=== PATIENT | female | born 1960 | race African-American/Black ===

== ENCOUNTER 2017-03-15 17:32 | Emergency (ER) | payer SELFPAY ==
[~2017-03-15] VITALS: Ht 160 cm; Wt 110.0 kg
[~2017-03-15 17:32] MED LIST: CYCL-36 PO; IBUP-232 PO
[2017-03-15 17:35] VITALS: BP 163/96; PULSE 84; RESP 16; TEMP 98.5; O2SAT 98
--- NOTE | 2017-03-15 17:53 | PD ---
Physical Exam Time Seen by Provider: 17:52 Narrative 56yo F c/o LUQ abd pain and diarrhea x2 days, +N w/o V. +subjective fever. Patient seen in triage. VS reviewed. Awaiting bed placement. Data Data Last Documented VS Vital Signs Date Time Temp Pulse Resp B/P Pulse Ox O2 Delivery O2 Flow Rate FiO2 03/15/17 17:35 98.5 84 16 163/96 98 MDM Supervised Visit with SHOSHANA: Shirin Calzada Mar 15, 2017 17:53
[2017-03-15 18:22] LABS: BASOPHIL % 0.7 % (0.0-2.0); EOSINOPHIL # 0.2 TH/MM3 (0-0.4); EOSINOPHIL % 3.4 % (0.0-4.0); HEMATOCRIT 40.3 % (35.0-46.0); HEMO FLAGS DIFF FINAL; LYMPH % 36.9 % (9.0-44.0); LYMPHOCYTE # 1.7 TH/MM3 (1.0-4.8); MEAN CELL VOLUME 86.7 FL (80.0-100.0); MEAN CORPUSCULAR HEMOGLOBIN 28.7 PG (27.0-34.0); MEAN CORPUSCULAR HGB CONC 33.1 % (32.0-36.0); PLATELET COUNT 255 TH/MM3 (150-450); RED BLOOD COUNT 4.65 MIL/MM3 (4.00-5.30); RED CELL DISTRIBUTION WIDTH 14.9 % (11.6-17.2); WHITE BLOOD COUNT 4.5 TH/MM3 (4.0-11.0)
[2017-03-15 18:34] LABS: APTT (PATIENT) 26.2 SEC (24.3-30.1); PROTHROMBIN TIME - PATIENT 11.6 SEC (9.8-11.6)
[2017-03-15 18:39] LABS: ANION GAP 7 MEQ/L (5-15); AST (GOT) 17 U/L (15-37); BICARBONATE 25.5 MEQ/L (21.0-32.0); BLOOD UREA NITROGEN 13 MG/DL (7-18); CHLORIDE 109 MEQ/L (98-107); GLOMERULAR FILTRATION RATE 96 ML/MIN (>89); POTASSIUM 3.5 MEQ/L (3.5-5.1); SODIUM (NA) 141 MEQ/L (136-145)
[2017-03-15] MEDS ORDERED: PRED10 PO (18:41)
[2017-03-15 18:45] LABS: BACTERIA, URINE OCC /hpf; BLOOD, URINE MOD (NEG); COMMENT (UR) CULT NOT INDICATED; CULTURE IF INDICATED CULT NOT INDICATED; GLUCOSE,URINE NEG (NEG); HYALINE CAST, URINE 4 /lpf (RARE); KETONE, URINE NEG (NEG); MUCUS URINE FEW /lpf (OCC); NITRITE,URINE NEG (NEG); PH, URINE 5.5 (5.0-8.5); SQUAMOUS EPITHELIAL CELL URINE 6 /hpf (0-5); URINE COLOR YELLOW (YELLW/STRAW)
[2017-03-15 18:49] LABS: ALKALINE PHOSPHATASE 69 U/L (45-117); ALT (GPT) 17 U/L (10-53); TOTAL BILIRUBIN ADULT 0.3 MG/DL (0.2-1.0)
[2017-03-15] MEDS ORDERED: BACT800T5 PO (19:17)
--- NOTE | 2017-03-15 19:18 | PD ---
HPI Chief Complaint: Abdominal Pain Time Seen by Provider: 18:45 Travel History International Travel<30 days: No Contact w/Intl Traveler<30days: No Traveled to known affect area: No History of Present Illness HPI ALEK is a 56 y.o female presenting with abdominal pain, headache , and non-bloody diarrhea after eating fried chicken at her friend's house 3 days ago. She describes her pain as a moderate, non-radiating, constant 8/10 crampy sensation that is mostly in her LUQ. It is non-worsening. She has tried Gatorade and fluids to help with these symptoms but throws up shortly after consumption. She denies anything that makes her sickness worse. AA reports having associated fever, nausea, non-bloody/non-emesis. She also reports having a 5 minute episode of chest pain yesterday associated with numbness in her hands that resolved on it's own. She has not had this pain since. Denies dyspnea , chills, back pain, leg pain, changes in urination and edema. She says these symptoms are similar to an episode of food poisoning she experienced when she was 18. Her LMP was when she was 38. She also notes her Psoriasis has flared since her symptoms began. She has no other medical conditions. She smokes 5 cigarettes a day, but denies alcohol or drug use. Surgical history remarkable for ovarian cyst removal. Family history notable for cervical cancer in 2 sisters. This patient does not have insurance and does not follow up regularly with a PCP. COUNTS INCLUDE 234 BEDS AT THE [facility] Past Medical History Narrative Medical Psoriasis Asthma: No Autoimmune Disease: No Blood Disorders: No Heart Rhythm Problems: No Cancer: No Cardiovascular Problems: Yes High Cholesterol: No Chemotherapy: No Chest Pain: No Congestive Heart Failure: No COPD: No Cerebrovascular Accident: No Diminished Hearing: No Endocrine: No Glaucoma: No Genitourinary: No Headaches: No Hypertension: Yes Immune Disorder: No Musculoskeletal: No Neurologic: No (NARCOLEPSY) Psychiatric: No Reproductive: No Respiratory: Yes Integumentary: Yes (PSORIASIS ) Immunizations Current: No Migraines: No Myocardial Infarction: No Radiation Therapy: No Seizures: No Sleep Apnea: Yes Tetanus Vaccination: > 5 Years Influenza Vaccination: No PNEUMOCCOCAL Vaccine (Year): 2 ?: Not Menopausal: Yes : 2 Para: 1 : 1 Ovarian Cysts: Yes (LEFT) Past Surgical History Abdominal Surgery: Yes (CYST REMOVED FROM OVARY) Cardiac Surgery: No Ear Surgery: No Endocrine Surgery: No Eye Surgery: No Genitourinary Surgery: No Gynecologic Surgery: Yes (LEFT OVARIAN CYCST SURG) Oral Surgery: No Thoracic Surgery: No Other Surgery: Yes (BILATERAL BREAST REDUCTION) Family History Narrative Family History Cervical cancer in 2 sisters Social History Alcohol Use: Yes (OCCASIONAL) Tobacco Use: Yes (SOMETIMES ) Substance Use: Yes (MARIJUANA OCCASIONAL) Allergies-Medications (Allergen,Severity, Reaction): Coded Allergies: Amoxicillin (Verified Allergy, Severe, Rash, 03/15/17) Bacitracin (Verified Allergy, Severe, Rash, 03/15/17) Keflex (Verified Allergy, Severe, Hives, 03/15/17) Neomycin (Verified Allergy, Severe, Hives, 03/15/17) Zinc (Verified Allergy, Severe, Rash, 03/15/17) Reported Meds & Prescriptions Reported Meds & Active Scripts Active Bactrim DS (Sulfamethoxazole-Trimethoprim) 800-160 Mg Tab 1 Tab PO BID Reported Prednisone 10 Mg Tab 10 Mg PO DAILY Review of Systems Except as stated in HPI: all other systems reviewed are Neg Physical Exam Narrative GENERAL: Alert and oriented, responds to questions intelligently. Appears to be in pain, holds her abdomen. SKIN: Warm and dry. Multiple diffuse non-erythematous, non-purulent scaly lesions with excoriation distributed in a linear fashion both truncally and axially. Also present on her scalp. HEAD: Atraumatic. Normocephalic. EYES: Pupils equal and round. No scleral icterus. No injection or drainage. ENT: No nasal bleeding or discharge. Mucous membranes pink and moist. NECK: Trachea midline. No JVD. CARDIOVASCULAR: Regular rate and rhythm. RESPIRATORY: No accessory muscle use. Clear to auscultation. Breath sounds equal bilaterally. GASTROINTESTINAL: BS + in all 4 quadrants. Abdomen soft, diffusely tender, mostly in LUQ. Nondistended. Hepatic and splenic margins not palpable. No masses appreciated. MUSCULOSKELETAL: Extremities without clubbing, cyanosis, or edema. No obvious deformities. NEUROLOGICAL: Awake and alert. No obvious cranial nerve deficits. Motor grossly within normal limits. Five out of 5 muscle strength in the arms and legs. Normal speech. PSYCHIATRIC: Appropriate mood and affect; insight and judgment normal. Data Data Last Documented VS Vital Signs Date Time Temp Pulse Resp B/P Pulse Ox O2 Delivery O2 Flow Rate FiO2 03/15/17 17:35 98.5 84 16 163/96 98 VS reviewed Orders Complete Blood Count With Diff (03/15/17 17:54) Comprehensive Metabolic Panel (03/15/17 17:54) Lipase (03/15/17 17:54) Prothrombin Time / Inr (Pt) (03/15/17 17:54) Act Partial Throm Time (Ptt) (03/15/17 17:54) Urinalysis - C+S If Indicated (03/15/17 17:54) Dexamethasone Inj (Decadron Inj) (03/15/17 19:30) Labs Laboratory Tests Test 03/15/17 18:08 White Blood Count 4.5 TH/MM3 Red Blood Count 4.65 MIL/MM3 Hemoglobin 13.3 GM/DL Hematocrit 40.3 % Mean Corpuscular Volume 86.7 FL Mean Corpuscular Hemoglobin 28.7 PG Mean Corpuscular Hemoglobin 33.1 % Concent Red Cell Distribution Width 14.9 % Platelet Count 255 TH/MM3 Mean Platelet Volume 7.9 FL Neutrophils (%) (Auto) 44.0 % Lymphocytes (%) (Auto) 36.9 % Monocytes (%) (Auto) 15.0 % Eosinophils (%) (Auto) 3.4 % Basophils (%) (Auto) 0.7 % Neutrophils # (Auto) 2.0 TH/MM3 Lymphocytes # (Auto) 1.7 TH/MM3 Monocytes # (Auto) 0.7 TH/MM3 Eosinophils # (Auto) 0.2 TH/MM3 Basophils # (Auto) 0.0 TH/MM3 CBC Comment DIFF FINAL Differential Comment Prothrombin Time 11.6 SEC Prothromb Time International 1.0 RATIO Ratio Activated Partial 26.2 SEC Thromboplast Time Urine Color YELLOW Urine Turbidity HAZY Urine pH 5.5 Urine Specific [place] 1.028 Urine Protein 30 mg/dL Urine Glucose (UA) NEG mg/dL Urine Ketones NEG mg/dL Urine Occult Blood MOD Urine Nitrite NEG Urine Bilirubin NEG Urine Urobilinogen 2.0 MG/DL Urine Leukocyte Esterase TRACE Urine RBC 18 /hpf Urine WBC 3 /hpf Urine Squamous Epithelial 6 /hpf Cells Urine Bacteria OCC /hpf Urine Hyaline Casts 4 /lpf Urine Mucus FEW /lpf Microscopic Urinalysis Comment CULT NOT INDICATED Sodium Level 141 MEQ/L Potassium Level 3.5 MEQ/L Chloride Level 109 MEQ/L Carbon Dioxide Level 25.5 MEQ/L Anion Gap 7 MEQ/L Blood Urea Nitrogen 13 MG/DL Creatinine 0.75 MG/DL Estimat Glomerular Filtration 96 ML/MIN Rate Random Glucose 92 MG/DL Calcium Level 8.1 MG/DL Total Bilirubin 0.3 MG/DL Aspartate Amino Transf 17 U/L (AST/SGOT) Alanine Aminotransferase 17 U/L (ALT/SGPT) Alkaline Phosphatase 69 U/L Total Protein 6.8 GM/DL Albumin 3.6 GM/DL Lipase 134 U/L [facility] Medical Decision Making Medical Screen Exam Complete: Yes Emergency Medical Condition: Yes Medical Record Reviewed: Yes Differential Diagnosis Colitis, Gastroenteritis, IBS, IBD, Pancreatitis, Cholecystitis Narrative Course Patient agrees to undergo blood tests to further investigate the cause of her symptoms. CBC & BMP Diagram 03/15/17 18:08 LFTs normal Lipase 134 UA: Hematuria Diet lifestyle modification endorsed. Return precautions discussed. We also discussed psoriasis symptoms extensively with patient. Diagnosis Primary Impression: Colitis Additional Impression: Psoriasis Referrals: Primary Care Physician 3 days Additional Instructions: You have a choice when it comes to health care, and we are glad that you chose [facility]. Hopefully, we have met your expectations on today's visit. You are welcome to return to [facility] at any time, as we are committed to meeting the health care needs of our community. Med/Other Pt SpecificInfo: Prescription(s) given Scripts Sulfamethoxazole-Trimethoprim (Bactrim DS)800-160 Mg Tab1 Tab PO BID #6 TAB Ref 0 Prov:Ervin Cook MD 03/15/17 Disposition: 01 DISCHARGE HOME Condition: Stable Ervin Cook MD Mar 15, 2017 19:18
[2017-03-15] MEDS ORDERED: DEXAMETHASONE SOD PHOS 4 MG/ML VIAL IM ONE (19:30)
== END 2017-03-15 20:23 | disposition home or self-care (01) ==
LOC: NEPD 17:32
DX: K52.9 Noninfective gastroenteritis and colitis, unspecified (principal); L40.9 Psoriasis, unspecified; R51 Headache; R50.9 Fever, unspecified; I10 Essential (primary) hypertension; G47.30 Sleep apnea, unspecified; Z72.0 Tobacco use; Z86.79 Personal history of other diseases of the circulatory system
CPT/HCPCS: 80053; 81001; 83690; 85025; 85610; 85730; 96372; 99284; J1100

== ENCOUNTER 2018-03-22 21:26 | Inpatient (IN) ==
[2018-03-26] MEDS ORDERED: hydrALAZINE 10 MG Tablet PO PRN (00:01)
[2018-03-26] MEDS ORDERED: Acetaminophen 500 MG Tablet PO PRN (00:01)
[2018-03-26] MEDS ORDERED: Naloxone Inj 0.4 MG/ML Vial IV.PUSH PRN (00:01)
[2018-03-26] MEDS ORDERED: Bisacodyl 10 MG Supp RECTAL PRN (00:01)
[2018-03-26] MEDS ORDERED: oxyCODONE/Acetaminophen 10/325 Tablet ONE (00:47)
[2018-03-26] MEDS: oxyCODONE/Acetaminophen 10/325 Tablet PO PRN ×5 (01:53→22:34)
[2018-03-26] MEDS: hydrALAZINE 25 MG Tablet PO SCH ×2 (05:48→13:00)
[2018-03-26] MEDS: Lisinopril 20 MG Tablet PO SCH ×2 (09:23→20:26)
[2018-03-26] MEDS: Enoxaparin Inj 40 MG/0.4 ML Syringe SQ SCH (09:23)
[2018-03-26] MEDS: Morphine Inj 4 MG/ML Vial IV.PUSH PRN ×2 (09:24→20:26)
[2018-03-26] MEDS: Senna/Docusate Sodium 8.6/50 MG Tablet PO SCH ×2 (09:24→20:26)
[2018-03-26] MEDS: amLODIPine 10 MG Tablet PO SCH (09:24)
[2018-03-26] MEDS: predniSONE 10 MG Tablet PO SCH (09:24)
--- NOTE | 2018-03-26 09:48 | P.PN ---
Subjective Interval history: Mrs. Juarez was afebrile with stable vital signs overnight. Patient reports continued chest pain which she describes as below her sternum and painful when she touches her chest wall. Patient also reports mild headache which is unchanged. Patient reports normal breathing and that her cough is improved. Normal urination. Patient states she has not had a bowel movement in several days. Physical Exam Vital signs: Vital Signs 03/25/18 19:35 03/25/18 20:00 03/25/18 23:35 Temperature 98.2 F Pulse Rate 72 55 L 56 L Respiratory Rate 16 Blood Pressure 182/78 H Pulse Oximetry 98 03/26/18 00:00 03/26/18 03:40 03/26/18 04:00 Temperature 97.4 F L 97.6 F Pulse Rate 78 54 L 51 L Respiratory Rate 17 17 Blood Pressure 117/60 144/72 H Pulse Oximetry 96 98 Intake & Output 03/25/18 03/26/18 03/26/18 18:59 06:59 18:59 Intake Total 360 / 360 Balance 360 / 360 Weight 96.4 kg 96 kg Intake: Oral 360 / 360 Other: # Voids 1 Narrative: GENERAL: in no apparent distress. Skin: Hyperpigmentation of R thigh. Scaling of skin on scalp CARDIOVASCULAR: Normal rate and regular rhythm without murmurs. Normal LE perfusion Chest: Pain to palpation of lower sternal area and slightly left of sternum around ~5th rib. No pain with inspiration RESPIRATORY: Good respiratory efforts. CTAB; normal rate GASTROINTESTINAL: Abdomen soft, non-tender, non-distended. Normal active bowel sounds MUSCULOSKELETAL: Grossly normal motor function and ROM NEURO: Alert & Oriented x4 to person, place, time, situation. Grossly normal peripheral sensory/motor function PSYCH: Normal affect Results - Labs CBC & Chem 7: 03/24/18 06:17 03/24/18 06:17 Laboratory Results - last 24 hr 03/22/18 03/22/18 03/22/18 19:35 19:35 19:35 WBC 8.0 RBC 4.23 Hgb 12.7 Hct 37.8 MCV 89.4 MCH 29.9 MCHC 33.5 RDW 15.7 Plt Count 298 MPV 7.6 Neut % (Auto) 85.8 H Lymph % (Auto) 11.0 [place] % (Auto) 2.6 Eos % (Auto) 0.0 Baso % (Auto) 0.6 Neut # (Auto) 6.9 Lymph # (Auto) 0.9 L [place] # (Auto) 0.2 Eos # (Auto) 0.0 Baso # (Auto) 0.0 CBC Comment DIFF FINAL PT 10.1 INR 1.0 APTT 21.7 L D-Dimer Quant (PE/DVT) 0.39 Sodium 141 Potassium 4.3 Chloride 108 H Carbon Dioxide 20.6 L Anion Gap 12 BUN 15 Creatinine 0.74 Estimated GFR 98 Random Glucose 120 H Calcium 8.9 Magnesium 2.3 Total Bilirubin 0.3 AST 25 ALT 19 Alkaline Phosphatase 81 Total Creatine Kinase 140 CK-MB (CK-2) 1.1 Troponin I LESS THAN 0.02 L Total Protein 7.3 Albumin 3.7 Lipase 90 03/22/18 03/23/18 03/23/18 23:03 01:50 09:10 WBC RBC Hgb Hct MCV MCH MCHC RDW Plt Count MPV Neut % (Auto) Lymph % (Auto) [place] % (Auto) Eos % (Auto) Baso % (Auto) Neut # (Auto) Lymph # (Auto) [place] # (Auto) Eos # (Auto) Baso # (Auto) CBC Comment PT INR APTT D-Dimer Quant (PE/DVT) Sodium Potassium Chloride Carbon Dioxide Anion Gap BUN Creatinine Estimated GFR Random Glucose Calcium Magnesium Total Bilirubin AST ALT Alkaline Phosphatase Total Creatine Kinase 85 96 CK-MB (CK-2) Troponin I LESS THAN 0.02 L LESS THAN 0.02 L LESS THAN 0.02 L Total Protein Albumin Lipase 03/24/18 03/24/18 06:17 06:17 WBC 8.9 RBC 4.36 Hgb 12.9 Hct 39.8 MCV 91.3 MCH 29.6 MCHC 32.4 RDW 15.4 Plt Count 265 MPV 8.5 Neut % (Auto) 44.1 Lymph % (Auto) 46.1 H [place] % (Auto) 7.5 Eos % (Auto) 1.7 Baso % (Auto) 0.6 Neut # (Auto) 3.9 Lymph # (Auto) 4.1 [place] # (Auto) 0.7 Eos # (Auto) 0.2 Baso # (Auto) 0.1 CBC Comment DIFF FINAL PT INR APTT D-Dimer Quant (PE/DVT) Sodium 142 Potassium 3.5 D Chloride 107 Carbon Dioxide 25.3 Anion Gap 10 BUN 11 Creatinine 0.59 Estimated GFR 127 Random Glucose 62 L Calcium 8.5 Magnesium Total Bilirubin 0.3 AST 13 L ALT 16 Alkaline Phosphatase 65 Total Creatine Kinase CK-MB (CK-2) Troponin I Total Protein 6.8 Albumin 3.5 Lipase Assessment and Plan - Assessment (1) Chest pain Code(s): R07.9 - Chest pain, unspecified Status: Acute (2) Aortic aneurysm Code(s): I71.9 - Aortic aneurysm of unspecified site, without rupture Status: Acute (3) HTN (hypertension) Code(s): I10 - Essential (primary) hypertension Status: Acute (4) Sleep apnea Code(s): G47.30 - Sleep apnea, unspecified Status: Acute - Plan 57-year-old female with: Noncardiac chest pain/costochondral chest pain Impression: Reproducible. AAA work-up negative for dissection. ACS work-up negative -Cardiology consulted; dissection ruled-out and no other cardiac work-up deemed necessary -Pain control -Opiates (percocet, morphine for BRKP) used to avoid NSAID use due to HTN -Will re-initiate NSAIDs (Toradol) to attempt to avoid opiate on discharge HTN Impression: Suspect some pain and NSAID component -Continue Amlodipine 10mg daily -Conitnue Lisinopril 20mg BID -Will increase Hydralazine to 50mg q8hrs since persistent HTN -Will plan to restart NSAID's (s/p Toradol IV x1) Likely secondary to uncontrolled pain and NSAIDs. -Patient started on amlodipine yesterday in addition to lisinopril. She has been on scheduled NSAIDs which was discontinued. Treat pain as above. Monitor blood pressure. Titrate antihypertensives as needed. -Add scheduled hydralazine - PRN Vasotec AAA Impression: No disection on CTA. Patient with HTN and tobacco abuse -Will attempt BP control and adult school counselor regarding cessation -BB deferred due to low rate -Need f/u imaging in 6 mo -Cardiology consulted - no additional work-up advised, avoid AV node suppression, consider IV Toradol Sinus bradycardia EKG shows no acute ST segment or T-wave changes. 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
[2018-03-26] MEDS ORDERED: Ketorolac 10 MG Tablet PO SCH (20:00)
[2018-03-26] MEDS: hydrALAZINE 50 MG Tablet PO SCH (21:56)
[2018-03-26] MEDS: Famotidine 20 MG Tablet PO SCH (22:35)
[2018-03-26] MEDS: Ketorolac 10 MG Tablet PO SCH (22:37)
[2018-03-27] MEDS: Ketorolac 10 MG Tablet PO SCH ×4 (02:48→22:40)
[2018-03-27] MEDS: Morphine Inj 4 MG/ML Vial IV.PUSH PRN ×2 (04:08→10:03)
[2018-03-27] MEDS: hydrALAZINE 50 MG Tablet PO SCH ×3 (05:27→22:41)
[2018-03-27] MEDS: oxyCODONE/Acetaminophen 10/325 Tablet PO PRN ×4 (05:32→22:38)
[2018-03-27 07:15] LABS: Baso % (Auto) 0.5 % (0.0-2.0); Eos # (Auto) 0.1 th/mm3 (0.0-0.4); Eos % (Auto) 1.4 % (0.0-4.0); Hematocrit 44.8 % (35.0-46.0); Hemoglobin 14.8 gm/dL (11.6-15.3); Lymph % (Auto) 40.6 % (9.0-44.0); Mean Corpuscular Hemoglobin 29.9 pg (27.0-34.0); Mean Corpuscular Volume 90.5 fL (80.0-100.0); Mean Platelet Volume 7.7 fL (7.0-11.0); Mono # (Auto) 0.7 th/mm3 (0.0-0.9); Neut # (Auto) 4.9 th/mm3 (1.8-7.7); Neut % (Auto) 50.5 % (16.0-70.0); Platelet Count 289 th/mm3 (150-450); Red Blood Count 4.95 mil/mm3 (4.00-5.30); Red Cell Distribution Width 15.8 % (11.6-17.2); White Blood Count 9.7 th/mm3 (4.0-11.0)
[2018-03-27 07:33] LABS: Anion Gap 9 meq/L (5-15); Blood Urea Nitrogen 15 mg/dL (7-18); Calcium 9.2 mg/dL (8.5-10.1); Carbon Dioxide 25.5 meq/L (21.0-32.0); Chloride 105 meq/L (98-107); Glomerular Filtration Rate Greater Than 89 mL/min (>89); Glucose,Random 76 mg/dL (74-106); Potassium 3.8 meq/L (3.5-5.1); Sodium 139 meq/L (136-145)
[2018-03-27] MEDS: Enoxaparin Inj 40 MG/0.4 ML Syringe SQ SCH (09:18)
[2018-03-27] MEDS: Lisinopril 20 MG Tablet PO SCH ×2 (09:19→22:39)
[2018-03-27] MEDS: predniSONE 10 MG Tablet PO SCH (09:19)
[2018-03-27] MEDS: amLODIPine 10 MG Tablet PO SCH (09:19)
[2018-03-27] MEDS: Senna/Docusate Sodium 8.6/50 MG Tablet PO SCH ×2 (09:19→22:41)
--- NOTE | 2018-03-27 13:30 | P.PN ---
Subjective Interval history: Mrs. Juarez was intermittently hypertensive overnight (low BP 105/57 but otherwise mild HTN with SBP's 140's-170's). Patient has persistent chest pain; she states that it is worse today and radiating to her back and down her left arm. It also hurts with deep breathing and with palpation of chest. Patient frustrated regarding pain. No shortness of breath. Normal urination. No bowel changes; some constipation. Physical Exam Vital signs: Vital Signs 03/26/18 14:41 03/26/18 16:00 03/26/18 16:22 Temperature 98.0 F Pulse Rate 100 H 55 L 68 Respiratory Rate 20 22 Blood Pressure 154/79 H Pulse Oximetry 96 96 03/26/18 16:23 03/26/18 19:45 03/26/18 20:00 Temperature 97.6 F Pulse Rate 56 L 58 L Respiratory Rate 20 Blood Pressure 140/83 Pulse Oximetry 96 96 03/27/18 00:00 03/27/18 03:26 03/27/18 04:00 Temperature 98.1 F 98.2 F Pulse Rate 57 L 62 55 L Respiratory Rate 20 20 Blood Pressure 170/81 H 147/59 H Pulse Oximetry 97 97 03/27/18 08:00 Temperature Pulse Rate 51 L Respiratory Rate 18 Blood Pressure Pulse Oximetry Intake & Output 03/26/18 03/27/18 03/27/18 18:59 06:59 18:59 Intake Total 480 / 480 740 / 740 Output Total 0 / 0 800 / 800 Balance 480 / 480 -60 / -60 Weight 94.6 kg Intake: Oral 480 / 480 740 / 740 Output: Urine 800 / 800 Stool 0 / 0 Other: # Voids 1 Narrative: GENERAL: in no apparent distress. Skin: Hyperpigmentation of R thigh. Scaling of skin on scalp CARDIOVASCULAR: Normal rate and regular rhythm without murmurs. Normal LE perfusion Chest: Pain to palpation of general sternum. Also pain with inspiration RESPIRATORY: CTAB; normal rate GASTROINTESTINAL: Abdomen soft, non-tender, non-distended. Normal active bowel sounds MUSCULOSKELETAL: Grossly normal motor function and ROM NEURO: Alert & Oriented. Grossly normal peripheral sensory/motor function PSYCH: Normal affect Results - Labs CBC & Chem 7: 03/27/18 06:04 03/27/18 06:04 Laboratory Results - last 24 hr 03/27/18 03/27/18 03/27/18 04:24 06:04 06:04 WBC 9.7 RBC 4.95 Hgb 14.8 Hct 44.8 MCV 90.5 MCH 29.9 MCHC 33.0 RDW 15.8 Plt Count 289 MPV 7.7 Neut % (Auto) 50.5 Lymph % (Auto) 40.6 [place] % (Auto) 7.0 Eos % (Auto) 1.4 Baso % (Auto) 0.5 Neut # (Auto) 4.9 Lymph # (Auto) 4.0 [place] # (Auto) 0.7 Eos # (Auto) 0.1 Baso # (Auto) 0.0 WBC Differential . Differential Comment Auto diff final Sodium 139 Potassium 3.8 Chloride 105 Carbon Dioxide 25.5 Anion Gap 9 BUN 15 Creatinine 0.79 Estimated GFR Greater than 89 POC Glucose 79 Random Glucose 76 Calcium 9.2 - Imaging CXR 03/27- No acute intrathoracic disease. No significant change compared to the prior study Aorta CTA- Aneurysmal dilation of ascending aorta measuring 4.9 cm. Suspected left cortical 3mm calcification. 1.4 cm hypodense mass in R kidney likely related to a cyst Assessment and Plan - Assessment (1) Chest pain Code(s): R07.9 - Chest pain, unspecified Status: Acute (2) Aortic aneurysm Code(s): I71.9 - Aortic aneurysm of unspecified site, without rupture Status: Acute (3) HTN (hypertension) Code(s): I10 - Essential (primary) hypertension Status: Acute (4) Sleep apnea Code(s): G47.30 - Sleep apnea, unspecified Status: Acute - Plan 57-year-old female with: Noncardiac chest pain/costochondral chest pain Impression: 03/27- reported worsening pain radiating to left arm. Pain is reproducible with some pain with inspiration AAA work-up negative for dissection. ACS work-up negative -Cardiology consulted; dissection ruled-out and no other cardiac work-up deemed necessary -03/27- repeat EKG/CXR/Troponin negative; patient reassured -Pain control -Opiates (percocet, morphine for BRKP) used to avoid NSAID use due to HTN -Will re-initiate NSAIDs (Toradol) to attempt to avoid opiate on discharge -Will try increasing Prednisone to 40mg daily x5 days to improve suspected MSK related pain HTN Impression: Suspect some pain and NSAID component. Some continued HTN -Continue Amlodipine 10mg daily -Continue Lisinopril 20mg BID -Continue Hydralazine to 50mg q8hrs since persistent HTN Likely secondary to uncontrolled pain and NSAIDs. - PRN Vasotec AAA Impression: No disection on CTA. Patient with HTN and tobacco abuse -Will attempt BP control and funeral planning counselor regarding cessation -BB deferred due to low rate -Need f/u imaging in 6 mo -Cardiology consulted - no additional work-up advised, avoid AV node suppression, consider IV Toradol Sinus bradycardia EKGs show no acute ST segment or T-wave changes. RBBB. 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
--- NOTE | 2018-03-27 13:58 | XR ---
EXAM DATE: 03/27/2018 1:54 PM EDT AGE/SEX: 57 years / Female INDICATIONS: Chest pain. CLINICAL DATA: This is the patient's subsequent encounter. Patient reports that signs and symptoms h ave been present for 1 week and indicates a pain score of 8/10. MEDICAL/SURGICAL HISTORY: Hypertension. None. COMPARISON: [facility] [place], CHEST SINGLE AP, 03/22/2018. . FINDINGS: A single AP view of the chest demonstrates the lungs to be symmetrically aerated without evidence of mass, infiltrate or effusion. The cardiomediastinal contours are unremarkable. Osseous structures a re intact. CONCLUSION: No acute intrathoracic disease. No significant change compared to the prior study. Electronically signed by: Geoff Aleman MD 03/27/2018 1:57 PM EDT
[2018-03-27] MEDS ORDERED: predniSONE 20 MG Tablet PO ONE (21:47)
[2018-03-27] MEDS: Famotidine 20 MG Tablet PO SCH (22:41)
[2018-03-28] MEDS: Morphine Inj 4 MG/ML Vial IV.PUSH PRN ×2 (02:05→13:08)
[2018-03-28] MEDS: Ketorolac 10 MG Tablet PO SCH ×3 (02:07→15:27)
[2018-03-28] MEDS: oxyCODONE/Acetaminophen 10/325 Tablet PO PRN ×3 (05:09→15:31)
[2018-03-28] MEDS: hydrALAZINE 50 MG Tablet PO SCH ×2 (05:09→15:27)
[2018-03-28 07:30] VITALS: TEMP 97.9
[2018-03-28] MEDS: Senna/Docusate Sodium 8.6/50 MG Tablet PO SCH (09:26)
[2018-03-28] MEDS: amLODIPine 10 MG Tablet PO SCH (09:32)
[2018-03-28] MEDS: predniSONE 10 MG Tablet PO SCH (09:32)
[2018-03-28] MEDS: Enoxaparin Inj 40 MG/0.4 ML Syringe SQ SCH (09:32)
[2018-03-28] MEDS: Lisinopril 20 MG Tablet PO SCH (09:32)
[2018-03-28 10:26] LABS: Baso % (Auto) 0.2 % (0.0-2.0); Hematocrit 47.8 % (35.0-46.0); Hemoglobin 15.6 gm/dL (11.6-15.3); Lymph % (Auto) 10.8 % (9.0-44.0); Mean Corpuscular HGB Conc 32.6 % (32.0-36.0); Mean Corpuscular Hemoglobin 29.7 pg (27.0-34.0); Mean Corpuscular Volume 91.1 fL (80.0-100.0); Mean Platelet Volume 8.1 fL (7.0-11.0); Mono # (Auto) 0.2 th/mm3 (0.0-0.9); Mono % (Auto) 1.7 % (0.0-8.0); Neut # (Auto) 7.8 th/mm3 (1.8-7.7); Neut % (Auto) 87.3 % (16.0-70.0); Platelet Count 301 th/mm3 (150-450); Red Blood Count 5.25 mil/mm3 (4.00-5.30); Red Cell Distribution Width 15.8 % (11.6-17.2)
--- NOTE | 2018-03-28 10:33 | P.DS ---
Date of admission: 03/23/18 11:15 Primary care physician: No Primary Care Physician Brief History from admission: The patient is a very pleasant 57-year-old female with a history of narcolepsy, hypertension, sleep apnea, mild ascending aortic aneurysm who presented to the hospital with chest pain. About 48 hours ago she began to experience sharp, stabbing substernal and left parasternal chest pain , which has been constant for the last 48 hours. She has had intermittent shortness of breath. Denies associated nausea or diaphoresis. Coughing seems to exacerbate the chest pain. The patient notes a cough productive of yellowish-brownish sputum for the past 3 weeks. Says she inhaled Febrize at that time and since then she has a cough. not much sputum production at this time. Her chest pain is also reproducible by palpation. DS: Diagnosis - Discharge Diagnosis (1) Chest pain Status: Acute (2) Aortic aneurysm Status: Acute (3) HTN (hypertension) Status: Acute (4) Sleep apnea Status: Acute DS: Medications - Discharge Medications Prescriptions: amlodipine [Norvasc] 10 mg PO DAILY 30 Days #30 tab hydralazine 50 mg PO Q8HR 30 Days #90 tab ketorolac 10 mg PO Q6H 3 Days #12 tab oxycodone-acetaminophen 1 tab PO Q4H PRN 3 Days #10 tab PRN Reason: PAIN GREATER THAN5 prednisone [Deltasone] 40 mg PO DAILY 5 Days #5 tab DS: Summary Hospital Course: 57-year-old female with: Noncardiac chest pain/costochondral chest pain. AAA work-up negative for dissection. ACS work-up negative. Cardiology consulted; dissection ruled-out and no other cardiac work-up deemed necessary. Pain control ,. Opiates (percocet, morphine for BRKP) used to avoid NSAID use due to HTN,. Will try increasing Prednisone to 40mg daily x5 days to improve suspected MSK related pain. HTN suspect some 2/2 pain and NSAID component. Continue Amlodipine 10mg daily, Continue Lisinopril 20mg BID,. Continue Hydralazine to 50mg q8hrs since persistent HTN Likely secondary to uncontrolled pain and NSAIDs. AAA, No disection on CTA. Patient with HTN and tobacco abuse,. Will attempt BP control and rehabilitation services counselor regarding cessation. BB deferred due to low rate, . Need f/u imaging in 6 mo. Sinus bradycardia, EKGs show no acute ST segment or T-wave changes. RBBB. No concern for significant heart block,. Psoriasis. 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 Will increase to 40mg x5 days. - Time Spent with Patient Total time spent providing and/or coordinating discharge services: Greater than 30 minutes Exam Vital signs: Vital Signs 03/27/18 12:00 03/27/18 20:00 03/27/18 23:15 Temperature 98.7 F 97.5 F L Pulse Rate 68 65 Respiratory Rate 18 18 18 Blood Pressure 105/57 L 138/73 Pulse Oximetry 95 95 03/28/18 00:00 03/28/18 04:00 Temperature 97.5 F L 97.9 F Pulse Rate 62 61 Respiratory Rate 19 16 Blood Pressure 137/65 162/88 H Pulse Oximetry 93 L 95 Intake & Output 03/27/18 03/28/18 03/28/18 18:59 06:59 18:59 Intake Total 1500 / 1500 240 / 240 Output Total 1200 / 1200 Balance 300 / 300 240 / 240 Weight 95.7 kg Intake: Oral 1500 / 1500 240 / 240 Output: Urine 1200 / 1200 Other: # Voids 2 # Bowel Movements 0 - Constitutional no acute distress - Routine HEENT Exam Head: Present: normocephalic - Routine Neck Exam Present: supple, full ROM - Routine Chest/Breast/Axilla Exam Chest wall: Present: tenderness (left chest wall to palpation,.) - Routine Cardiovascular Exam Present: RRR, S1, S2 - Routine Abdominal Exam Present: soft - Routine Skin Exam Present: intact - Routine Neurological Exam Present: alert, oriented X3 Results Procedures completed during hospitalization: See DC summary. Labs on day of discharge: Labs from last 24 hours 03/28/18 03/28/18 03/27/18 07:04 07:04 19:40 WBC Pending RBC Pending Hgb Pending Hct Pending Plt Count Pending WBC Differential Pending Differential Comment Pending ESR 11 Sodium Pending Potassium Pending Chloride Pending Carbon Dioxide Pending Anion Gap Pending BUN Pending Creatinine Pending Random Glucose Pending Calcium Pending Troponin I 03/27/18 15:37 WBC RBC Hgb Hct Plt Count WBC Differential Differential Comment ESR Sodium Potassium Chloride Carbon Dioxide Anion Gap BUN Creatinine Random Glucose Calcium Troponin I Less than 0.02 L - Impressions ITS Impressions Chest X-Ray 03/27/18 00:00 CONCLUSION: No acute intrathoracic disease. No significant change compared to the prior study. Discharge Plan - Discharge Disposition Patient Disposition: 01 Discharge Home - Discharge Condition Condition: Stable - Discharge Order Discharge Orders: Discharge Order (Routine); Ordered 03/28/18 Ordered By: Anju Farfan - Physicians Team Primary Care Provider: Primary Care Adilia Gonzales Attending Provider: Slade Jones Other Providers: Wyatt Monroy MD - Rxs /Orders / Referrals /Forms Prescriptions: New amlodipine [Norvasc] 10 mg Tablet 10 mg PO DAILY 30 Days Qty: 30 RF: 0 hydralazine 50 mg Tablet 50 mg PO Q8HR 30 Days Qty: 90 RF: 0 ketorolac 10 mg Tablet 10 mg PO Q6H 3 Days Qty: 12 RF: 0 oxycodone-acetaminophen 10-325 mg Tablet 1 tab PO Q4H PRN (Reason: PAIN GREATER THAN5) 3 Days Qty: 10 RF: 0 prednisone [Deltasone] 20 mg Tablet 40 mg PO DAILY 5 Days Qty: 5 RF: 0 Continue lisinopril 20 mg Tablet 20 mg PO DAILY prednisone 10 mg Tablet 10 mg PO DAILY Referrals: Primary Care Adilia Gonzales [Primary Care Provider] - See Instructions (PATIENT TO CALL FOR FOLLOW UP BRIEN )
--- NOTE | 2018-03-28 11:03 | ECG ---
Date Performed: 03/27/2018 Time Performed: 13:33:48 PTAGE: 57 years EKG: Sinus bradycardia Leftward axis Right bundle branch block Since the previous tracing, no si gnificant change noted Abnormal ECG PREVIOUS TRACING : 03/23/2018 17.53 DOCTOR: Behzad Durán Interpretating Date/Time 03/28/2018 11:01:27
[2018-03-28 13:58] LABS: Calcium 10.2 mg/dL (8.5-10.1); Carbon Dioxide 24.2 meq/L (21.0-32.0); Potassium 4.8 meq/L (3.5-5.1)
[2018-03-28 14:03] VITALS: PULSE 69
[2018-03-28 14:24] VITALS: BP 138/64
[2018-03-28 14:35] VITALS: RESP 18
[2018-03-28 14:37] VITALS: O2SAT 96
== END 2018-03-28 15:40 | disposition home or self-care (01) ==
LOC: N04 03-23 11:15
PROVIDERS: ADMIT Family Medicine; ATTEND Family Medicine